=== PATIENT | male | born 1945 | race Caucasian/White ===

== ENCOUNTER 2022-09-09 10:17 | Outpatient (CLI) | payer MEDICARE, OTHER | END 2022-09-09 10:18 | disposition home or self-care (01) | LOC: SCSMRI 10:17 | PROVIDERS: ATTEND Orthopaedic Surgery | DX: M48.061 Spinal stenosis, lumbar region without neurogenic claudication (principal); M47.816 Spondylosis without myelopathy or radiculopathy, lumbar region; M48.8X6 Other specified spondylopathies, lumbar region | CPT/HCPCS: 72148 ==